=== PATIENT | male | born 1945 | race Asian ===

== ENCOUNTER → 2021-05-18 | Outpatient (CLI) | payer MEDICARE, OTHER | END | disposition home or self-care (01) | LOC: RADMN 16:03 | PROVIDERS: ATTEND Internal Medicine Geriatric Medicine | DX: M25.562 Pain in left knee (principal) | CPT/HCPCS: 73562-TC ==

== ENCOUNTER → 2021-05-26 | Outpatient (CLI) | payer MEDICARE, OTHER | END | disposition home or self-care (01) | LOC: RADMN 13:42 | PROVIDERS: ATTEND Internal Medicine Geriatric Medicine | DX: S83.242A Other tear of medial meniscus, current injury, left knee, initial encounter (principal); M23.301 Other meniscus derangements, unspecified lateral meniscus, left knee; M25.462 Effusion, left knee; X58.XXXA Exposure to other specified factors, initial encounter; Y93.89 Activity, other specified; Y92.89 Other specified places as the place of occurrence of the external cause; Y99.8 Other external cause status | CPT/HCPCS: 73721 ==

== ENCOUNTER → 2021-07-12 | Outpatient (CLI) | payer MEDICARE, OTHER | END | disposition home or self-care (01) | LOC: RADPV 12:33 | PROVIDERS: ATTEND Internal Medicine Cardiovascular Disease | DX: I08.0 Rheumatic disorders of both mitral and aortic valves (principal); I31.3 Pericardial effusion (noninflammatory); I21.9 Acute myocardial infarction, unspecified; I50.9 Heart failure, unspecified; I50.1 Left ventricular failure, unspecified | CPT/HCPCS: 93306 ==

== ENCOUNTER 2022-05-20 07:29 | Emergency (ER) | payer MEDICARE, OTHER ==
[~2022-05-20] VITALS: Ht 167.6 cm; Wt 61.4 kg
[2022-05-20] MEDS ORDERED: ACET-784 PO (07:44)
[2022-05-20] MEDS ORDERED: ROSU10TA72 PO (07:44)
[2022-05-20] MEDS ORDERED: TAMS-13 PO (07:44)
[2022-05-20] MEDS ORDERED: LOSA-381 PO (07:44)
[2022-05-20] MEDS ORDERED: ASPI-1444 PO (07:44)
[2022-05-20 07:54] LABS: COVID AG,FIA SOURCE NASAL SWAB
[2022-05-20 08:15] LABS: INFLUENZA TYPE A NEGATIVE FOR TYPE A (NEGATIVE); INFLUENZA TYPE B NEGATIVE FOR TYPE B (NEGATIVE)
[2022-05-20 08:30] LABS: BASOPHILS % (AUTO) 0.7 % (0.0-2.0); EOSINOPHILS % (AUTO) 6.7 % (1.0-6.0); HEMATOCRIT 34.4 % (41-53); HEMOGLOBIN 12.4 g/dL (13.5-17.5); LYMPHOCYTES # (AUTO) 0.4 K/uL (1.0-4.8); LYMPHOCYTES % (AUTO) 8.7 % (22.0-44.0); MEAN CORPUSCULAR HEMOGLOBIN 38.4 pg (26.0-34.0); MEAN CORPUSCULAR HGB CONC 35.9 G/dL (31.0-37.0); MEAN CORPUSCULAR VOLUME 107 fL (80-100); MONOCYTES # (AUTO) 0.3 K/uL (0.1-1.0); MONOCYTES % (AUTO) 7.5 % (2.0-9.0); NEUTROPHILS # (AUTO) 3.4 K/uL (1.8-7.7); NEUTROPHILS % (AUTO) 76.4 % (40.0-70.0); PLATELET COUNT (AUTO) 181 K/uL (150-450); RED BLOOD CELL COUNT(AUTO) 3.22 MIL/uL (4.50-5.90); RED CELL DISTRIBUTION WIDTH 15.3 % (11.5-14.5)
[2022-05-20 08:39] LABS: CALCIUM, TOTAL 8.3 mg/dL (8.8-10.5); CREATININE 1.23 mg/dL (0.60-1.30); POTASSIUM 3.7 mmol/L (3.5-5.1)
[2022-05-20 08:43] LABS: INR 1.1 (0.9-1.1); PROTHROMBIN TIME 11.3 SEC (9.4-11.6)
[2022-05-20 09:04] LABS: ALBUMIN 3.6 g/dL (3.4-5.0); BILIRUBIN,TOTAL 0.9 mg/dL (0.1-1.0); TOTAL PROTEIN, SERUM 7.3 g/dL (6.4-8.2)
[2022-05-20] MEDS ORDERED: FUROSEMIDE 20 MG TABLET PO ONE (09:30)
[2022-05-20] MEDS ORDERED: AMOX250C4 PO (10:38)
[2022-05-20] MEDS ORDERED: FURO-152 PO (10:48)
[2022-05-20 11:06] VITALS: BP 154/82
== END 2022-05-20 11:12 | disposition home or self-care (01) ==
LOC: EMS 07:36
DX: J81.1 Chronic pulmonary edema (principal); J40 Bronchitis, not specified as acute or chronic; I25.10 Atherosclerotic heart disease of native coronary artery without angina pectoris; I11.0 Hypertensive heart disease with heart failure; I50.9 Heart failure, unspecified; Z85.9 Personal history of malignant neoplasm, unspecified; Z20.822 Contact with and (suspected) exposure to COVID-19
CPT/HCPCS: 71045; 80053; 82550; 83880; 84484; 85025; 85610; 85730; 87804; 93005; 99285; 36415-L1; 36415-TC

== ENCOUNTER → 2022-10-01 | Outpatient (CLI) | payer MEDICARE, OTHER ==
[~2022-10-01] MED LIST: ACET-784 PO; AMOX250C4 PO; ASPI-1444 PO; FURO-152 PO; LOSA-381 PO; ROSU10TA72 PO; TAMS-13 PO
== END | disposition home or self-care (01) ==
LOC: RADPV 16:41
PROVIDERS: ATTEND Internal Medicine Geriatric Medicine
DX: R05.3 Chronic cough (principal); M47.814 Spondylosis without myelopathy or radiculopathy, thoracic region; Z90.49 Acquired absence of other specified parts of digestive tract
CPT/HCPCS: 71046

== ENCOUNTER → 2023-09-18 | Outpatient (CLI) | payer MEDICARE, OTHER ==
[~2023-09-18] MED LIST changes: -TAMS-13 PO; +TAMS0.4C94 PO
== END | disposition home or self-care (01) ==
LOC: RADMN 10:24
PROVIDERS: ATTEND Internal Medicine Geriatric Medicine
DX: J44.9 Chronic obstructive pulmonary disease, unspecified (principal); R05.3 Chronic cough
CPT/HCPCS: 71046